=== PATIENT | female | born 1970 | race Caucasian/White ===

== ENCOUNTER 2021-04-27 14:14 | Outpatient (CLI) | payer OTHER | END 2021-04-27 14:15 | disposition home or self-care (01) | LOC: TBSIIMAG 14:14 | PROVIDERS: ATTEND Neurological Surgery | DX: M54.2 Cervicalgia (principal); M54.50 Low back pain, unspecified; M47.812 Spondylosis without myelopathy or radiculopathy, cervical region; M48.061 Spinal stenosis, lumbar region without neurogenic claudication; Z98.890 Other specified postprocedural states | CPT/HCPCS: 72050; 72110; 72141; 72148 ==